=== PATIENT | male | born 1950 | race Caucasian/White ===

== ENCOUNTER 2018-04-05 07:06 | Inpatient (IN) | payer MEDICARE, OTHER ==
[2018-04-05 08:09] LABS: ADD MAN DIFF? NO
[2018-04-05 08:24] LABS: WHITE BLOOD COUNT 5.5 10^3/ul (4.8-10.8)
[2018-04-05 08:24] LABS: BASOPHILS % 0.7 % (0.0-2.0); EOSINOPHILS # 0.2 10^3/ul (0.0-0.5); EOSINOPHILS % 2.7 % (0.0-7.0); HEMATOCRIT 43.3 % (42.0-52.0); HEMOGLOBIN 14.4 g/dl (14.0-18.0); LYMPHOCYTES % 17.4 % (15.0-51.0); MEAN CORPUSCULAR HEMOGLOBIN 33.5 pg (29.0-33.0); MEAN CORPUSCULAR HGB CONC 33.3 g/dl (32.0-37.0); MEAN CORPUSCULAR VOLUME 100.7 fl (82.0-101.0); MONOCYTE # 0.5 10^3/ul (0.3-0.9); MONOCYTES % 9.4 % (0.0-11.0); NEUTROPHIL # 3.8 10^3/ul (1.6-7.5); NEUTROPHILS % 69.6 % (39.0-77.0); PLATELET COUNT 182 10^3/UL (140-415); RED CELL DISTRIBUTION WIDTH 12.6 % (11.5-14.5)
[2018-04-05 08:40] LABS: ANION GAP 16 (8-16); CARBON DIOXIDE 27 mmol/L (21-31); CHLORIDE 107 mmol/L (97-110); GLUCOSE 99 mg/dl (70-220)
[2018-04-05 08:46] LABS: BLOOD UREA NITROGEN 23 mg/dl (7-20); CALCIUM 8.9 mg/dl (8.4-10.2); CREATININE 0.92 mg/dl (0.61-1.24); SODIUM 145 mmol/L (135-144)
[2018-04-05] MEDS ORDERED: IODIXANOL LOCM 100 ML BTL ×3 (10:44→11:48)
[2018-04-05] MEDS ORDERED: HEPARIN 1000 UNITS/ML 10 ML INJ (10:44)
[2018-04-05] MEDS ORDERED: LIDOCAINE 1% (MDV) 20 ML INJ (10:44)
[2018-04-05] MEDS ORDERED: FENTAnyl 50 MCG/ML VIAL (10:44)
[2018-04-05] MEDS ORDERED: MIDAZOLAM 1 MG/ML 2 ML INJ (10:44)
[2018-04-05] MEDS ORDERED: VERAPAMIL 5 MG INJ ×2 (10:44→11:36)
[2018-04-05] MEDS ORDERED: NITROGLYCERIN (IC) 100 MCG/ML INJ (10:45)
[2018-04-05] MEDS ORDERED: BIVALIRUDIN 250MG /NS 50 ML 50 ML IVPB (11:24)
[2018-04-05] MEDS ORDERED: TICAGRELOR 90 MG TABLET (11:25)
[2018-04-05] MEDS ORDERED: ASPIRIN 325 MG TAB (11:25)
[2018-04-05 13:04] LABS: INR 0.93; PROTIME 12.5 Sec (11.9-14.9)
[2018-04-05 13:05] LABS: PARTIAL THROMBOPLASTIN TIME 29.7 Sec (25.0-35.0)
[2018-04-05] MEDS: METOPROLOL 25 MG TAB PO ×2 (13:05→20:04)
[2018-04-05] MEDS: hydrALAzine 20 MG INJ IV (13:55)
[2018-04-05] MEDS ORDERED: ACETAMINOPHEN 325 MG TAB PO (20:00)
[2018-04-05] MEDS: ATORVASTATIN 40 MG TAB PO (20:03)
[2018-04-05] MEDS: TICAGRELOR 90 MG TABLET PO (20:05)
[2018-04-05] MEDS: morphine 2 MG INJ IV (20:06)
[2018-04-06 05:31] LABS: ADD MAN DIFF? NO
[2018-04-06 05:39] LABS: WHITE BLOOD COUNT 6.6 10^3/ul (4.8-10.8)
[2018-04-06 05:39] LABS: BASOPHILS % 0.3 % (0.0-2.0); EOSINOPHILS # 0.2 10^3/ul (0.0-0.5); EOSINOPHILS % 2.4 % (0.0-7.0); HEMATOCRIT 40.6 % (42.0-52.0); HEMOGLOBIN 13.9 g/dl (14.0-18.0); LYMPHOCYTES # 0.8 10^3/ul (0.8-2.9); LYMPHOCYTES % 12.7 % (15.0-51.0); MEAN CORPUSCULAR HEMOGLOBIN 33.8 pg (29.0-33.0); MEAN CORPUSCULAR HGB CONC 34.2 g/dl (32.0-37.0); MEAN CORPUSCULAR VOLUME 98.8 fl (82.0-101.0); MEAN PLATELET VOLUME 9.7 fl (7.4-10.4); MONOCYTE # 0.6 10^3/ul (0.3-0.9); MONOCYTES % 9.5 % (0.0-11.0); NEUTROPHILS % 74.9 % (39.0-77.0); PLATELET COUNT 160 10^3/UL (140-415); RED BLOOD COUNT 4.11 10^6/ul (4.70-6.10)
[2018-04-06 06:08] LABS: ANION GAP 11 (8-16); BLOOD UREA NITROGEN 16 mg/dl (7-20); CALCIUM 8.8 mg/dl (8.4-10.2); CARBON DIOXIDE 27 mmol/L (21-31); CHLORIDE 107 mmol/L (97-110); CREATININE 0.76 mg/dl (0.61-1.24); GLUCOSE 102 mg/dl (70-220); MAGNESIUM 1.8 mg/dl (1.7-2.5); PHOSPHORUS 3.7 mg/dl (2.5-4.9); POTASSIUM 4.7 mmol/L (3.5-5.1); SODIUM 140 mmol/L (135-144)
[2018-04-06 06:15] LABS: ALANINE AMINOTRANSFERASE 28 IU/L (13-69); ALBUMIN 3.3 g/dl (3.3-4.9); ALKALINE PHOSPHATASE 71 IU/L (42-121); ASPARTATE AMINO TRANSFERASE 56 IU/L (15-46); BILIRUBIN,INDIRECT 1.4 mg/dl (0-1.1); BILIRUBIN,TOTAL 1.4 mg/dl (0.2-1.3)
[2018-04-06] MEDS: LISINOPRIL 5 MG TAB PO (08:14)
[2018-04-06] MEDS: ASPIRIN 81 MG TAB PO (08:14)
[2018-04-06] MEDS: FAMOTIDINE 20 MG TAB PO ×2 (08:15→21:28)
[2018-04-06] MEDS: TICAGRELOR 90 MG TABLET PO ×2 (08:15→21:29)
[2018-04-06] MEDS: METOPROLOL 25 MG TAB PO ×2 (08:15→21:28)
[2018-04-06 10:02] LABS: ADD UMIC NO; UR ASCORBIC ACID NEGATIVE (NEGATIVE); UR BILIRUBIN (Dip) NEGATIVE (NEGATIVE); UR BLOOD (Dip) NEGATIVE (NEGATIVE); UR CLARITY CLEAR (CLEAR); UR COLOR YELLOW (YELLOW); UR GLUCOSE (Dip) NEGATIVE (NEGATIVE); UR KETONES (Dip) NEGATIVE (NEGATIVE); UR LEUKOCYTE ESTERASE (Dip) NEGATIVE Leu/ul (NEGATIVE); UR NITRITE (Dip) NEGATIVE (NEGATIVE); UR SPECIFIC GRAVITY (Dip) 1.028 (1.003-1.030); UR TOTAL PROTEIN (Dip) NEGATIVE (NEGATIVE); UR UROBILINOGEN (Dip) NEGATIVE (NEGATIVE)
[2018-04-06 11:06] LABS: CREATININE,URINE RANDOM 103.37 mg/dl (20-370)
[2018-04-06 11:26] LABS: SODIUM,URINE RANDOM > 198 mmol/L (30-90)
[2018-04-06] MEDS: morphine 2 MG INJ IV (11:28)
[2018-04-06] MEDS ORDERED: FENTAnyl 50 MCG/ML VIAL (13:53)
[2018-04-06] MEDS ORDERED: MIDAZOLAM 1 MG/ML 2 ML INJ (13:54)
[2018-04-06] MEDS ORDERED: BIVALIRUDIN 250MG /NS 50 ML 50 ML IVPB (14:09)
[2018-04-06] MEDS ORDERED: NITROGLYCERIN (IC) 100 MCG/ML INJ (14:16)
[2018-04-06] MEDS ORDERED: LIDOCAINE 1% (MDV) 20 ML INJ (14:16)
[2018-04-06] MEDS ORDERED: IODIXANOL LOCM 100 ML BTL (14:44)
[2018-04-06] MEDS ORDERED: METOPROLOL 5 MG INJ (15:08)
[2018-04-06] MEDS ORDERED: morphine 2 MG INJ IV (15:30)
[2018-04-06] MEDS: SOD CHLORIDE 0.9% 1,000 ML IV (15:50)
[2018-04-06] MEDS ORDERED: ATROPINE 1 MG/10 ML SYRINGE (17:33)
[2018-04-06] MEDS: ATORVASTATIN 40 MG TAB PO (21:28)
[2018-04-07 05:21] LABS: ADD MAN DIFF? NO
[2018-04-07 05:27] LABS: BASOPHILS % 0.3 % (0.0-2.0); EOSINOPHILS # 0.1 10^3/ul (0.0-0.5); EOSINOPHILS % 2.4 % (0.0-7.0); HEMATOCRIT 39.6 % (42.0-52.0); HEMOGLOBIN 13.6 g/dl (14.0-18.0); LYMPHOCYTES # 0.7 10^3/ul (0.8-2.9); LYMPHOCYTES % 11.5 % (15.0-51.0); MEAN CORPUSCULAR HEMOGLOBIN 33.6 pg (29.0-33.0); MEAN CORPUSCULAR HGB CONC 34.3 g/dl (32.0-37.0); MEAN CORPUSCULAR VOLUME 97.8 fl (82.0-101.0); MEAN PLATELET VOLUME 9.9 fl (7.4-10.4); MONOCYTE # 0.6 10^3/ul (0.3-0.9); MONOCYTES % 10.3 % (0.0-11.0); NEUTROPHIL # 4.4 10^3/ul (1.6-7.5); NEUTROPHILS % 75.2 % (39.0-77.0); PLATELET COUNT 153 10^3/UL (140-415); RED BLOOD COUNT 4.05 10^6/ul (4.70-6.10); RED CELL DISTRIBUTION WIDTH 12.7 % (11.5-14.5)
[2018-04-07 05:27] LABS: WHITE BLOOD COUNT 5.9 10^3/ul (4.8-10.8)
[2018-04-07] MEDS: hydrALAzine 20 MG INJ IV (05:47)
[2018-04-07 06:54] LABS: ANION GAP 9 (8-16); BLOOD UREA NITROGEN 17 mg/dl (7-20); CALCIUM 8.5 mg/dl (8.4-10.2); CARBON DIOXIDE 28 mmol/L (21-31); CHLORIDE 107 mmol/L (97-110); CREATININE 0.77 mg/dl (0.61-1.24); GLUCOSE 107 mg/dl (70-220); MAGNESIUM 1.7 mg/dl (1.7-2.5); PHOSPHORUS 3.6 mg/dl (2.5-4.9); POTASSIUM 4.4 mmol/L (3.5-5.1); SODIUM 140 mmol/L (135-144)
[2018-04-07] MEDS: ASPIRIN 81 MG TAB PO (08:02)
[2018-04-07] MEDS: FAMOTIDINE 20 MG TAB PO (08:02)
[2018-04-07] MEDS: METOPROLOL 25 MG TAB PO (08:04)
[2018-04-07] MEDS: LISINOPRIL 5 MG TAB PO (08:05)
[2018-04-07] MEDS: TICAGRELOR 90 MG TABLET PO (08:08)
== END 2018-04-07 13:05 | disposition home or self-care (01) | DRG 247 ==
LOC: SDS 07:06 → REC 12:15 → ICU 15:30
PROC: 027034Z Dilation of Coronary Artery, One Artery with Drug-eluting Intraluminal Device, Percutaneous Approach (ICD-10-PCS; principal; 2018-04-05 10:30)
PROC: 4A023N7 Measurement of Cardiac Sampling and Pressure, Left Heart, Percutaneous Approach (ICD-10-PCS; 2018-04-05 10:30)
PROC: B211YZZ Fluoroscopy of Multiple Coronary Arteries using Other Contrast (ICD-10-PCS; 2018-04-05 10:30)
PROC: 027034Z Dilation of Coronary Artery, One Artery with Drug-eluting Intraluminal Device, Percutaneous Approach (ICD-10-PCS; 2018-04-05 10:33)
DX: I25.119 Atherosclerotic heart disease of native coronary artery with unspecified angina pectoris (principal); E87.0 Hyperosmolality and hypernatremia; I10 Essential (primary) hypertension; I48.2 Chronic atrial fibrillation; Z79.01 Long term (current) use of anticoagulants
CPT/HCPCS: 80048; 80076; 81003; 83735; 84100; 84155; 84300; 85025; 85610; 85730; 87081; 93454